=== PATIENT | female | born 1940 | race Caucasian/White ===

== ENCOUNTER 2020-07-06 18:33 | Emergency (ER) | payer OTHER ==
[~2020-07-06] VITALS: Ht 160 cm; Wt 61.2 kg
[2020-07-06] MEDS ORDERED: HYDROCHLOROTHIA25 MG PO (19:10)
[2020-07-06] MEDS ORDERED: TOPROL XL25 M1 PO (19:10)
[2020-07-06] MEDS ORDERED: CLOTRIMAZOLE AF1523 TOP (21:51)
== END 2020-07-06 22:02 | disposition home or self-care (01) ==
LOC: ER 18:33
DX: A90 Dengue fever [classical dengue] (principal); R53.1 Weakness

== ENCOUNTER 2020-07-08 13:15 | Emergency (ER) | payer OTHER ==
[~2020-07-08] VITALS: Ht 160 cm; Wt 61.2 kg
[~2020-07-08 13:15] MED LIST: CLOTRIMAZOLE AF1523 TOP; HYDROCHLOROTHIA25 MG PO; TOPROL XL25 M1 PO
== END 2020-07-08 23:43 | disposition home or self-care (01) ==
LOC: ER 13:15
DX: B34.9 Viral infection, unspecified (principal); R11.0 Nausea; R10.84 Generalized abdominal pain

== ENCOUNTER 2020-07-10 09:44 | Outpatient (CLI) | payer OTHER | END 2020-07-10 09:46 | disposition home or self-care (01) | LOC: LAB 09:44 | PROVIDERS: ATTEND General Practice | DX: A90 Dengue fever [classical dengue] (principal); D69.49 Other primary thrombocytopenia ==

== ENCOUNTER 2021-06-15 09:13 | Emergency (ER) | payer OTHER ==
[~2021-06-15] VITALS: Ht 160 cm; Wt 61.2 kg
== END 2021-06-15 11:04 ==
LOC: ER 09:13
DX: L30.9 Dermatitis, unspecified (principal)